=== PATIENT | male | born 1990 | race American Indian/Alaskan Native ===

== ENCOUNTER 2020-02-15 13:58 | Emergency (ER) | payer OTHER ==
[2020-02-15 14:09] VITALS: BP 143/85
--- NOTE | 2020-02-15 17:28 | Emergency Department Report ---
ED Abdominal Pain HPI - General Chief Complaint: Rectal Pain Stated Complaint: BOIL ON BUTTOCK Time Seen by Provider: 02/15/20 17:20 Source: patient Mode of arrival: Ambulatory Limitations: No Limitations - History of Present Illness Initial Comments: 29-year-old obese -[place] male presents emerged department complaining of 1 to 2-month history of progressively worsening rectal pain which gets worse with constipation and frequent bowel movements. States that when he has bowel movements he feels very sharp rectal pain which is followed by spasms and tenderness but reports no discharge. No fever, chills, sweats no chest pain or palpitations no nausea or vomiting. He denies any rectal penetration. No known history for any hemorrhoids but has a concern based on his current symptoms. Migration to: no migration Severity scale (0 -10): 7 Quality: sharp, burning Improves With: nothing Associated Symptoms: denies: fever, dysuria, hematemesis, hematuria, anorexia, syncope - Related Data Previous Rx's Medication Instructions Recorded Last Taken Type Dibucaine 1% [Nupercainal] 1 applicatio MO TID #30 tube 02/15/20 Unknown Rx Hydrocortisone [Anucort-HC SUPPOS] 25 mg RC BID #20 supp.rect 02/15/20 Unknown Rx Allergies Allergy/AdvReac Type Severity Reaction Status Date / Time morphine Allergy Unknown Verified 02/15/20 14:05 ED Review of Systems ROS: Stated complaint: BOIL ON BUTTOCK Other details as noted in HPI Comment: All other systems reviewed and negative ED Past Medical Hx - Past Medical History Previous Medical History?: No - Surgical History Additional Surgical History: Cyst removal - Social History Smoking Status: Never Smoker Substance Use Type: None - Medications Home Medications: Home Medications Medication Instructions Recorded Confirmed Last Taken Type Dibucaine 1% [Nupercainal] 1 applicatio MO TID #30 tube 02/15/20 Unknown Rx Hydrocortisone [Anucort-HC SUPPOS] 25 mg RC BID #20 supp.rect 02/15/20 Unknown Rx ED Physical Exam - General Limitations: No Limitations General appearance: alert, in no apparent distress - Head Head exam: Present: atraumatic, normocephalic - Eye Eye exam: Present: normal appearance, PERRL Pupils: Present: normal accommodation - ENT ENT exam: Present: normal exam, normal orophraynx, mucous membranes moist, TM's normal bilaterally - Neck Neck exam: Present: normal inspection, full ROM - Respiratory Respiratory exam: Present: normal lung sounds bilaterally. Absent: respiratory distress, wheezes, rales, decreased breath sounds, prolonged expiratory - Cardiovascular Cardiovascular Exam: Present: regular rate, normal rhythm. Absent: systolic murmur, diastolic murmur, rubs, gallop - GI/Abdominal GI/Abdominal exam: Present: soft, normal bowel sounds - Rectal Rectal exam: Present: deferred, hemorrhoids (Engorging no tracking internally no external hemorrhoids visible), tenderness, other (Rectal fissures are noted) - Extremities Exam Extremities exam: Present: normal inspection - Back Exam Back exam: Present: normal inspection - Neurological Exam Neurological exam: Present: alert, oriented X3 - Psychiatric Psychiatric exam: Present: normal affect, normal mood - Skin Skin exam: Present: warm, dry, intact, normal color. Absent: rash ED Course Vital Signs 02/15/20 14:08 Temperature 99 F Pulse Rate 108 H Respiratory 16 Rate Blood Pressure 143/85 [Right] O2 Sat by Pulse 97 Oximetry ED Medical Decision Making - Medical Decision Making 29-year-old [place] male assessment department with back pain found to have hemorrhoids and anal fissure is discussed with him in great detail on his diagnosis also he included his via a virtual visit as well. We gordon diagrams and avoid had a long discussion of the need to follow-up with gastroenterology for definitive treatment of his skin condition. He did report a full understanding. Critical care attestation.: If time is entered above; I have spent that time in minutes in the direct care of this critically ill patient, excluding procedure time. ED Disposition Clinical Impression: Anal fissure, Hemorrhoid Disposition: [id number] TO HOME OR SELFCARE Is pt being admited?: No Does the pt Need Aspirin: No Condition: Stable Instructions: Anal Fissure (ED), Hemorrhoidectomy (ED), Hemorrhoids (ED) Prescriptions: Hydrocortisone [Anucort-HC SUPPOS] 25 mg RC BID #20 supp.rect Dibucaine 1% [Nupercainal] 1 applicatio MO TID #30 tube Referrals: PRIMARY CARE, [Primary Care Provider] - 3-5 Days [facility] [Provider Group] - 3-5 Days
== END 2020-02-15 18:13 | disposition home or self-care (01) ==
LOC: ED 13:58
DX: K60.2 Anal fissure, unspecified (principal); K64.8 Other hemorrhoids; Z88.6 Allergy status to analgesic agent
CPT/HCPCS: 99282

== ENCOUNTER 2020-03-15 23:56 | Emergency (ER) | payer OTHER ==
[2020-03-16 00:11] VITALS: BP 127/76
== END 2020-03-16 03:45 | disposition left against medical advice (07) ==
LOC: ED 23:56
DX: K64.9 Unspecified hemorrhoids (principal); Z53.21 Procedure and treatment not carried out due to patient leaving prior to being seen by health care provider